=== PATIENT | female | born 1985 | race Caucasian/White ===

== ENCOUNTER 2016-07-18 22:59 | Emergency (ER) | payer SELFPAY ==
[2016-07-18 23:00] VITALS: BMI 34.4
[2016-07-18 23:21] VITALS: BP 139/85; PULSE 90; RESP 20; TEMP 98.2; O2SAT 100
--- NOTE | 2016-07-19 00:04 | C.PDOC ---
History Of Present Illness 31 year old patient presents to the ED complaining of left 3rd digit pain since earlier today. Patient reports she got her finger stuck in a crate at work. Patient denies any fever, numbness or weakness to the finger. Time Seen by Provider: 07/18/16 23:39 Chief Complaint (Nursing): Upper Extremity Problem/Injury History Per: Patient History/Exam Limitations: no limitations Onset/Duration Of Symptoms: Mins (prior to arrival) Current Symptoms Are (Timing): Still Present Quality: "Pain" Severity: Moderate Pain Scale Rating Of: 4 Exacerbating Factor(s): Movement Recent travel outside of the [place]: No Past Medical History Reviewed: Historical Data, Nursing Documentation, Vital Signs Vital Signs: Last Vital Signs Temp 98.2 F 07/18/16 23:17 Pulse 90 07/18/16 23:17 Resp 20 07/18/16 23:17 BP 139/85 07/18/16 23:17 Pulse Ox 100 07/19/16 00:35 - Medical History PMH: Asthma - [facility] Procedures INJECT/INFUSE ELECTROLYT (08/28/13) INJECT/INFUSE NEC (08/28/13) Family History: States: Unknown Family Hx - Social History Hx Tobacco Use: No Hx Alcohol Use: No Hx Substance Use: No - Immunization History Hx Tetanus Toxoid Vaccination: Yes Hx Influenza Vaccination: Yes Hx Pneumococcal Vaccination: Yes Review Of Systems Except As Marked, All Systems Reviewed And Found Negative. Constitutional: Negative for: Fever Musculoskeletal: Positive for: Other (left 3rd digit pain) Neurological: Negative for: Weakness, Numbness Physical Exam - Physical Exam Appears: Non-toxic, No Acute Distress Skin: Warm, Dry Extremity: Normal ROM, Capillary Refill (< 2 seconds), No Deformity, No Swelling , Other (left 3rd digit: erythema to the dorsal aspect of the finger at the proximal aspect of the nail bed, (-)subungal hematoma (-) swelling (-)deformity (+)<2 seconds capillary refill (+)normal pulse) Neurological/Psych: Oriented x3, Normal Motor, Normal Sensation ED Course And Treatment O2 Sat by Pulse Oximetry: 100 (RA) Pulse Ox Interpretation: Normal - Other Rad left 3rd digit X-Ray: Interpreted by Me, Viewed By Me Interpretation: negative Progress Note: Plan: -left 3rd digit x-ray. X-ray results were reviewed. Finger splint applied for support. Patient is discharged and instructed to follow up with PMD. Return if symptoms worsen. 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 - Scribe Statement The provider has reviewed the documentation as recorded by the Scribe Gisela Hairston All medical record entries made by the Scribe were at my direction and personally dictated by me. I have reviewed the chart and agree that the record accurately reflects my personal performance of the history, physical exam, medical decision making, and the department course for this patient. I have also personally directed, reviewed, and agree with the discharge instructions and disposition.
--- NOTE | 2016-07-19 11:37 | RAD ---
PROCEDURE: Left middle finger radiographs. HISTORY: r/o fx COMPARISON: None available TECHNIQUE: AP radiograph of the left hand, as well as spot oblique and lateral images of left middle finger were obtained. FINDINGS: LEFT MIDDLE FINGER: Unremarkable left 3rd digit without acute displaced fracture identified. Remainder of the left hand (as seen on the AP view) is grossly unremarkable. JOINTS: No dislocation. SOFT TISSUES: Mild soft tissue swelling. No evidence of radiopaque foreign body. OTHER FINDINGS: None. IMPRESSION: Mild soft tissue swelling. No acute displaced fracture or dislocation identified. If symptoms persist or if there is continued clinical concern, x-ray follow-up in 7-10 days should be considered.
== END 2016-07-19 00:37 | disposition home or self-care (01) ==
LOC: C.ER 22:59
DX: S60.032A Contusion of left middle finger without damage to nail, initial encounter (principal); W23.0XXA Caught, crushed, jammed, or pinched between moving objects, initial encounter; Y92.89 Other specified places as the place of occurrence of the external cause; Y99.0 Civilian activity done for income or pay

== ENCOUNTER 2016-07-22 20:16 | Emergency (ER) | payer SELFPAY ==
[2016-07-22 20:17] VITALS: BMI 34.4
[2016-07-22 20:42] VITALS: BP 123/76; PULSE 72; RESP 20; TEMP 97.9; O2SAT 100
--- NOTE | 2016-07-22 21:20 | C.PDOC ---
History Of Present Illness 31 year old female presents to the ED with complaints of purulent discharge draining from her injured finger nail. Patient states 4 days ago she injured her left middle finger by getting it caught between two crates. She was seen in the ED and had an X-ray which was negative and discharged home. She then experienced the drainage today and notes her finger became more swollen and painful. Denies fever, new trauma, nausea, weakness, numbness, or any other complaints at this time. Time Seen by Provider: 07/22/16 20:46 Chief Complaint (Nursing): Finger,Hand,&Wrist History Per: Patient History/Exam Limitations: no limitations Onset/Duration Of Symptoms: Days Current Symptoms Are (Timing): Still Present Severity: Mild Past Medical History Reviewed: Historical Data, Nursing Documentation, Vital Signs Vital Signs: Last Vital Signs Temp 97.9 F 07/22/16 20:36 Pulse 72 07/22/16 20:36 Resp 20 07/22/16 20:36 BP 123/76 07/22/16 20:36 Pulse Ox 100 07/23/16 05:13 - Medical History PMH: Asthma - [facility] Procedures INJECT/INFUSE ELECTROLYT (08/28/13) INJECT/INFUSE NEC (08/28/13) Family History: States: No Known Family Hx - Social History Hx Tobacco Use: No Hx Alcohol Use: No Hx Substance Use: No - Immunization History Hx Tetanus Toxoid Vaccination: Yes Hx Influenza Vaccination: Yes Hx Pneumococcal Vaccination: Yes Review Of Systems Except As Marked, All Systems Reviewed And Found Negative. Constitutional: Negative for: Fever, Chills Musculoskeletal: Positive for: Other (+Purulent discharge, swelling, and pain to the left middle finger) Neurological: Negative for: Weakness, Numbness Physical Exam - Physical Exam Appears: Non-toxic, No Acute Distress Skin: Normal Color, Warm, Dry Head: Atraumatic, Normacephalic Eye(s): bilateral: Normal Inspection, PERRL, EOMI Oral Mucosa: Moist Extremity: Normal ROM, Capillary Refill (< 2 seconds), No Deformity, Other (+ Healed cracked wound to the center of the left 3rd finger nail. +Fluctuance, tenderness, and swelling to the mid-nail margin) Pulses: Left Radial: Normal, Right Radial: Normal Neurological/Psych: Oriented x3, Normal Speech, Normal Cognition, Normal Motor, Normal Sensation ED Course And Treatment O2 Sat by Pulse Oximetry: 100 (Room air) Pulse Ox Interpretation: Normal - Incision & Drainage Of Abscess Anesthesia: Lidocaine 2% (Digital block done by me) Procedure: Incised W/Scalpel Blade#: (11), Drained Pus Medical Decision Making Medical Decision Making: Plan: -Flexeril -Motrin -Bactrim Old records reviewed, the patient was seen in the ED for similar symptoms on 07/18. Patient had a xray of the finger which revealed swelling but no fracture. Disposition - Disposition Referrals: [facility] [Outside] Andriy Delcid MD [Staff Provider] - Disposition: HOME/ ROUTINE Disposition Time: 23:00 Condition: GOOD Additional Instructions: Do warm soaks of the finger 4-5 times per day. Follow up with the Hand doctor within 1-2 days without fail. Return if worsened. Prescriptions: Sulfamethoxazole/Trimethoprim [Bactrim DS 800 mg-160 mg] 1 tab PO BID #14 tab Cephalexin [Keflex] 500 mg PO BID #14 capsule Instructions: Paronychia (ED) - Clinical Impression Clinical Impression: Paronychia - PA / DANCE DIRECTOR / Resident Statement / has reviewed & agrees with the documentation as recorded. - Scribe Statement The provider has reviewed the documentation as recorded by the Scribe Robert Monroe. All medical record entries made by the Scribe were at my direction and personally dictated by me. I have reviewed the chart and agree that the record accurately reflects my personal performance of the history, physical exam, medical decision making, and the department course for this patient. I have also personally directed, reviewed, and agree with the discharge instructions and disposition.
[2016-07-22] MEDS ORDERED: Lidocaine 2% Inj (20ml) INFIL ONE (22:04)
[2016-07-22] MEDS ORDERED: Lidocaine 2% Inj (20ml) ONE (22:06)
[2016-07-22] MEDS ORDERED: Tmp-Smz 800 mg-160 mg DS Tab PO STA (22:48)
[2016-07-22] MEDS ORDERED: Tmp-Smz 800 mg-160 mg DS Tab ONE (23:04)
== END 2016-07-22 23:12 | disposition home or self-care (01) ==
LOC: C.ER 20:16
DX: L03.012 Cellulitis of left finger (principal)

== ENCOUNTER 2017-01-20 02:45 | Emergency (ER) | payer OTHER ==
[2017-01-20 02:45] VITALS: BMI 34.4
[2017-01-20 03:02] VITALS: BP 125/82; PULSE 69; TEMP 98.6; O2SAT 99
--- NOTE | 2017-01-20 03:18 | C.PDOC ---
History Of Present Illness 31 year old female who presents to the ER with a complaint pain to the left wrist and left forearm for the past 4 days. Patient states she is unsure if she hurt herself while lifting heavy boxes at work; she notes taking 1 advil yesterday with no relief. Denies trauma or injury. Time Seen by Provider: 01/20/17 03:09 Chief Complaint (Nursing): Upper Extremity Problem/Injury History Per: Patient History/Exam Limitations: no limitations Onset/Duration Of Symptoms: Days Current Symptoms Are (Timing): Still Present Exacerbating Factor(s): Strenuous Use Of Affected Area Recent travel outside of the [place]: No Past Medical History Reviewed: Historical Data, Nursing Documentation, Vital Signs Vital Signs: Last Vital Signs Temp 98.6 F 01/20/17 02:58 Pulse 69 01/20/17 02:58 Resp 20 01/20/17 02:58 BP 125/82 01/20/17 02:58 Pulse Ox 99 01/20/17 03:18 - Medical History PMH: Asthma Surgical History: No Surg Hx - [facility] Procedures INJECT/INFUSE ELECTROLYT (08/28/13) INJECT/INFUSE NEC (08/28/13) Family History: States: Unknown Family Hx - Social History Hx Tobacco Use: No Hx Alcohol Use: No Hx Substance Use: No - Immunization History Hx Tetanus Toxoid Vaccination: Yes Hx Influenza Vaccination: Yes Hx Pneumococcal Vaccination: Yes Review Of Systems Musculoskeletal: Positive for: Arm Pain, Hand Pain Neurological: Negative for: Weakness, Numbness Physical Exam - Physical Exam Appears: Non-toxic, No Acute Distress Skin: Normal Color, Warm, Dry Head: Atraumatic, Normacephalic Oral Mucosa: Moist Extremity: Normal ROM (x4), Tenderness (Tenderness to dorsal left wrist and distal forearm), Capillary Refill (Good) Pulses: Left Radial: Normal, Right Radial: Normal Neurological/Psych: Oriented x3, Normal Speech, Normal Cognition, Normal Motor, Normal Sensation ED Course And Treatment O2 Sat by Pulse Oximetry: 99 (Room air) Pulse Ox Interpretation: Normal Progress Note: Motrin administered. On reevaluation, patient's pain has much improved. Patient placed in splint by CP, checked by me, and discharged home with instructions to follow up with PMD. Disposition Counseled Patient/Family Regarding: Diagnosis, Need For Followup, Rx Given - Disposition Disposition: HOME/ ROUTINE Disposition Time: 03:16 Condition: STABLE Additional Instructions: Please follow up with PMD Take meds as directed Return to ER if worse Prescriptions: Ibuprofen [Motrin] 600 mg PO Q6H #30 tab Instructions: Wrist Sprain (ED) Forms: [facility] ([place]ian) - Clinical Impression Clinical Impression: Sprain of left wrist - Scribe Statement The provider has reviewed the documentation as recorded by the Scribpoonam Sofia All medical record entries made by the Lindseyibpoonam were at my direction and personally dictated by me. I have reviewed the chart and agree that the record accurately reflects my personal performance of the history, physical exam, medical decision making, and the department course for this patient. I have also personally directed, reviewed, and agree with the discharge instructions and disposition.
[2017-01-20 03:34] VITALS: RESP 17
== END 2017-01-20 03:34 | disposition home or self-care (01) ==
LOC: C.ER 02:45
DX: S63.502A Unspecified sprain of left wrist, initial encounter (principal); X50.0XXA Overexertion from strenuous movement or load, initial encounter; Y99.0 Civilian activity done for income or pay